=== PATIENT | male | born 1975 | race Caucasian/White ===

== ENCOUNTER → 2020-11-15 | Outpatient (CLI) | payer OTHER | LOC: SJCVCIMAG 07:54 | PROVIDERS: ATTEND Internal Medicine | DX: R00.2 Palpitations (principal); I45.81 Long QT syndrome; Z82.49 Family history of ischemic heart disease and other diseases of the circulatory system ==

== ENCOUNTER → 2020-11-16 | Outpatient (CLI) | payer OTHER | LOC: SJCVCIMAG 11:12 | PROVIDERS: ATTEND Internal Medicine | DX: R00.2 Palpitations (principal); Z72.89 Other problems related to lifestyle; Z79.899 Other long term (current) drug therapy ==